=== PATIENT | female | born 1935 | race Caucasian/White ===

== ENCOUNTER 2017-01-18 15:26 | Inpatient (IN) | payer MEDICARE, OTHER ==
--- NOTE | ~2017-01-18 | DS ---
Discharge Summary [place] [id number] [facility] [place]. [address] NAME: EUSEBIO PIZANO : 34 STATUS : DIS IN PAT#: [id number] AGE: 81 ADM/REG DATE : 01/18/17 MR#: [id number] REPORT SERV DATE: 02/28/17 DICTATED BY: Denny POMPA DATE: 02/28/17 REPORT STATUS : Draft TRANSCRIBED BY: MODL DATE: 02/28/17 ADMISSION DATE: 01/18/2017 DISCHARGE DATE: 01/23/2017 SUMMARY DATE OF : 01/22/2017 DIAGNOSES AT THE TIME OF DEMISE: Acute on chronic systolic heart failure, acute hepatic failure, influenza A, sepsis syndrome, acute kidney injury, severe metabolic acidosis, hyperkalemia, and atrial fibrillation. ACTIVE CONSULTATIONS: 1. Nephrology. 2. Cardiology. PROCEDURES: None. BRIEF SUMMARY: 81-year-old female patient with multiple chronic medical problems, was admitted with sepsis syndrome with underlying influenza A with significant organ injury including acute kidney injury and hepatic failure. Despite initial consultation with Cardiology and Nephrology and despite maximum medical support, the patient continued to have a decline in her hepatic function and renal function. The patient was felt not to be a dialysis candidate due to her multiple medical problems and advanced age. Because of worsening renal failure in the setting of multiple other medical issues, decision was made by family to consider DNR. She had outside family that came in. We had a full family meeting to discuss options and they all agreed to proceeding with DNR comfort care. Her AICD was turned off, and the patient passed due to her multiple medical issues on the afternoon of 01/22/2017. The certificate was completed by myself at the time of the patient's passing. There was no autopsy requested. [facility]/MODL Denny Pompa M.D. / [id number] CC: Manjinder Corado DO
--- NOTE | ~2017-01-18 | CN ---
Consultation Report [facility] [address] [place]. [address] NAME: EUSEBIO PIZANO : 34 STATUS : ADM IN PAT#: [id number] AGE: 81 ADM/REG DATE : 01/18/17 MR#: [id number] REPORT SERV DATE: 01/19/17 DICTATED BY: FELICIA BELTRAN DATE: 01/19/17 REPORT STATUS : Draft TRANSCRIBED BY: MODL DATE: 01/19/17 CARDIOLOGY CONSULTATION DATE OF CONSULTATION: 01/19/2017 REASON FOR CONSULTATION: Congestive heart failure exacerbation associated with likely secondary influenza. HISTORY OF PRESENT ILLNESS: The patient is an 81-year-old female with chronic systolic congestive heart failure, permanent atrial fibrillation with chronic anticoagulation, diabetes and stage 4 chronic kidney disease. The patient recently hospitalized at [facility] and discharged on 01/12/2017. Echocardiogram at that time demonstrated ejection fraction of 25%. No significant valvular heart disease noted. The patient was transferred to [facility]. The patient reportedly while at [facility] developed progressive dyspnea and hypoxemia. She was transferred by [facility] and on arrival, was immediately placed on BiPAP for hypoxic respiratory failure. The patient is a very poor historian, previously followed by Dr. Fredy Wolff. She reports that she and Dr. Wolff have mutually terminated care. She has not sought ongoing cardiology followup since that time. She does state she desires to follow up with Dr. Corey Gil, my partner who is her color separation photographer. The patient is exceptionally poor historian. She is unable to clearly answer questions regarding fever, chills, urinary tract symptoms, bowel pattern etc. She does deny chest pain currently. PAST MEDICAL HISTORY: 1. Chronic systolic congestive heart failure-ejection fraction 30% by recent echocardiogram. 2. Implantable defibrillator/pacemaker with resynchronization therapy, implanted in 2008, [employer] brand device. 3. Chronic atrial fibrillation. 4. Chronic amiodarone use secondary to chronic atrial fibrillation. 5. Chronic anticoagulation secondary to atrial fibrillation. FAMILY HISTORY: Brother with sudden at age 50. Father reportedly with sudden at age 50. These records are taken from the outpatient record. SOCIAL HISTORY: The patient denies tobacco, alcohol, or illicit drug use. Records substantiate same claims. ALLERGIES: PENICILLIN WITH RASH. OUTPATIENT MEDICATIONS: Acetaminophen p.r.n.; Maalox liquid p.r.n.; amiodarone 200 mg daily; Dulcolax p.r.n.; carvedilol 3.125 mg p.o. b.i.d.; vitamin D3 1000 units p.o. daily; Voltaren gel topically twice daily p.r.n. pain; Pepcid 20 mg daily; hydrocodone/acetaminophen 5/325 mg daily q.8 hours p.r.n. pain; Plaquenil 200 mg daily; sliding scale insulin with NovoLog Consultation Report [place] [address] [place]. [address] NAME: EUSEBIO PIZANO : 34 STATUS : ADM IN PAT#: [id number] AGE: 81 ADM/REG DATE : 01/18/17 MR#: [id number] REPORT SERV DATE: 01/19/17 DICTATED BY: FELICIA BELTRAN DATE: 01/19/17 REPORT STATUS : Draft TRANSCRIBED BY: RAMON DATE: 01/19/17 insulin daily; Levemir insulin 14 units subcu at bedtime; levothyroxine 75 mcg daily; Lidocaine 5% topical patch at bedtime; Lidocaine 5% topical patch two patches topically daily applied to the knee; nitroglycerin 0.4 mg sublingual p.r.n.; Zofran 4 mg q.4 hours p.r.n. nausea vomiting; spironolactone 25 mg daily; torsemide 40 mg p.o. daily; tramadol 50 mg q.12 hours p.r.n. pain; and warfarin 5 mg daily with a target INR of 2 to 3. REVIEW OF SYSTEMS: Very difficult to obtain from the patient. However, negative for all organ systems except per the history of present illness. PHYSICAL EXAMINATION: VITALS: Respirations 100% on 4 L nasal cannula. Weight 82 kg, pulse 87, blood pressure 106/72, respirations 20 and unlabored. GENERAL: Obese elderly female, in no acute distress. Wearing nasal cannula oxygen. HEENT: Normal. NECK: Supple, no JVD or bruit, normal carotid upstroke bilaterally, no thyromegaly. LUNGS: Scattered crackles noted in all lung naranjo. CARDIOLOGY: Regular rhythm, normal S1, S2, no thrill, no murmur, rubs or gallops, normal PMI. ABDOMEN: Bowel sounds positive, soft, nontender, and nondistended. No masses or aortic bruits. No hepatosplenomegaly or hepatojugular reflux. EXTREMITIES: No edema. Normal pulses. No clubbing or cyanosis. SKIN: Warm and dry, no significant rash. NEUROLOGIC: Alert and oriented x 3. Appropriate mood. DATA: EKG: Biventricular paced rhythm. No clear P-wave identified. Interrogation of patient's device demonstrates normal right ventricular and left ventricular lead function. Right atrial sensing and capture are abnormal suggesting displacement of the lead. Due to dysfunction of the atrial lead, it has been turned off/electrically isolated by the device product support sales representative. LABORATORY DATA: Sodium 130, potassium 4.8, chloride 95, CO2 of 17, BUN 85, creatinine 3.27 from 2.7 on admission. GFR 15, glucose 288, magnesium 2.7, WBC 17.1, hemoglobin 9.8, hematocrit 30.1, platelets 292,000. Serial troponin 0.07, 0.28, and 0.43. Beta natriuretic peptide elevated at 792. IMPRESSION: 1. Chronic atrial fibrillation on amiodarone. Continue same. 2. Flipped defibrillator/biventricular pacemaker in situ-normal biventricular lead function with biventricular pacing. The atrial lead appears to be dislodged and by interrogation sensing nor pacing adequately. It has been inactivated by the device product support sales representative. 3. Chronic systolic congestive heart failure-exacerbation likely multifactorial most prominently secondary to influenza. Consultation Report [address] [address] NAME: EUSEBIO PIZANO : 34 STATUS : ADM IN [facility]#: [id number] AGE: 81 ADM/REG DATE : 01/18/17 MR#: [id number] REPORT SERV DATE: 01/19/17 DICTATED BY: FELICIA BELTRAN DATE: 01/19/17 REPORT STATUS : Draft TRANSCRIBED BY: MODL DATE: 01/19/17 4. Influenza A-per the hospitalist currently on Tamiflu. 5. Underlying urinary tract infection-currently being treated with antibiotics per hospitalist. 6. Chronic kidney disease-Nephrology involved, and they are currently managing diuretics and diuresis. We will defer the same at this time. Thank you for the opportunity to see the patient in consultation. We will continue to follow the patient with you. We have recommended continuation of her beta joy and amiodarone at this time. There are no plans for invasive management or procedures. We would recommend continuation of warfarin for stroke prophylaxis. INR is mildly supratherapeutic at 3.3. 1. Elevated liver function tests-multifactorial. Again diuresis as described above per the bathroom tiling professional. We will plan to follow the patient with you. CSL/MODL Bartolo Beltran M.D. / [id number] CC: Manjinder Corado DO
--- NOTE | ~2017-01-18 | HP ---
History And Physical [place] [id number] [facility] [place]. [address] NAME: EUSEBIO PIZANO : 34 STATUS : ADM IN [facility]#: [id number] AGE: 81 ADM/REG DATE : 01/18/17 MR#: [id number] REPORT SERV DATE: 01/18/17 DICTATED BY: ORQUIDEA OVALLE DATE: 01/18/17 REPORT STATUS : Draft TRANSCRIBED BY: MODL DATE: 01/18/17 DATE OF ADMISSION: 01/18/2017 CHIEF COMPLAINT: Shortness of breath, influenza. PRIMARY CARE DOCTOR: Unclear. HISTORY OF PRESENT ILLNESS: This is an unfortunate 81-year-old female, who suffers from obesity; systolic heart failure, chronic nature; known history of chronic atrial fibrillation, on chronic Coumadin; insulin-dependent diabetes; stage IV CKD, baseline around 2.0 to 2.5 creatinine; noted history of ESBL UTI. Hospitalization in [facility], discharged actually on 01/12/2017, at that time, found to have ESBL UTI, acute on chronic systolic heart failure exacerbation. Echo done there, EF 25%, global hypocontractility, mild MR, mild AR, and moderate TR. Had ultrasound, did not show any VTE at that time. The patient went to [facility]. Apparently, I spoke to the friend and the daughter, told me last Sunday, the patient was doing just fine. Then, the patient comes into the emergency department significantly hypoxic into the 70s, placed on BiPAP via the ER. Now, she is currently 100% on 50% FiO2. I do not have an ABG in front of me. The patient has very unclear history, not the best historian. She does nod her head. She does squeeze my hands to command. She is on BiPAP. She was taken off BiPAP earlier and apparently got very hypoxic. Though I tried to call her friend and her daughter for more history, they did not know much what had occurred except that she came from [facility], significant shortness of breath. Influenza swab was positive for influenza A. Came via EMS on CPAP. Noted chest x- ray, bilateral alveolar infiltration. White count 17.4. Thankfully, her pressure systolic arredondo is 116/64. The patient is a very poor historian given limitation of BiPAP communication and risk of worsened hypoxia if were to intermittently take off BiPAP. The patient states she was not short of breath and clearly is short of breath. As a result, she is a poor historian. I cannot assess if she has had any fevers, chills, nausea, vomiting, diarrhea, or subjective shortness of breath, but certainly has objective shortness of breath. PAST MEDICAL AND PAST SURGICAL HISTORY: The patient had recent AICD pacer. Past history of diabetic neuropathy, hypothyroidism, atrial fibrillation. Noted past surgical history of left foot, unclear surgery which is from [facility] records. ALLERGIES: PENICILLIN, UNCLEAR REACTION, APPARENTLY, SHE HAD A RASH. FAMILY HISTORY: Hypertension in at least one parent. SOCIAL HISTORY: Unclear if she has had any alcohol or drug use or tobacco use, however. HOME MEDICATIONS: See JAN. Continue what is relevant. History And Physical [address] [place]. [address] NAME: EUSEBIO PIZANO : 34 STATUS : ADM IN [facility]#: [id number] AGE: 81 ADM/REG DATE : 01/18/17 MR#: [id number] REPORT SERV DATE: 01/18/17 DICTATED BY: ORQUIDEA OVALLE DATE: 01/18/17 REPORT STATUS : Draft TRANSCRIBED BY: RAMON DATE: 01/18/17 OBJECTIVE: VITAL SIGNS: 116/64; 99.9 temp; 93 pulse, up to 110, seems to be paced, thought one time had nonsustained ventricular tachycardia, there have been no shocks here; 24 respirations; 92%, up from in the 70s per EMS, now she is on 100% FiO2 of 50 and she is 109 systolic over 77. GENERAL: Critical. HEENT: PERRLA. No scleral icterus. CARDIOVASCULAR: Tachycardic. Appears regular rhythm though. 1/6 systolic aortic murmur. RESPIRATORY: Bibasilar crackles. Decreased breath sounds otherwise. ABDOMEN: Obese. Mild tenderness to palpation, more periumbilical region. No rebound tenderness. EXTREMITIES: 1+ pitting edema. NEURO: Squeezes my hand to command. Says she does not have short of breath by nodding left to right when she clearly does have objective shortness of breath. Poor historian. PSYCH: Unable to assess given neuro status. LABORATORY DATA: White count 17.4; hemoglobin 11.4; 431,000 platelets; 4.5 potassium; 24 bicarb; 2.7 creatinine, baseline is like 2.0, 2.5; 77 BUN, 234 sugar, alkaline phos of 252; AST/ALT 524/82; BNP 803; troponin 0.07. EKG appears here to have ventricular paced, unable to fully assess ischemic ST-T segments. Chest x-ray, see above. ASSESSMENT AND PLAN: 1. Severe sepsis. 2. Healthcare-associated pneumonia with influenza A. 3. Altered mental status, acute toxic encephalopathy. 4. Chronic systolic heart failure, LVEF 25%. 5. Cholestatic transaminitis, unclear etiology. 6. Acute hypoxic respiratory failure. PLAN: We will go ahead and admit this patient to IMCU. Panculture given recent hospitalization, although she does have influenza A and she is altered, cannot fully rule out secondary bacterial infection until panculture results. We will place on vancomycin, cefepime, and Flagyl about 5% to 10% cross-reactivity with penicillin, does not appear to be an anaphylactic reaction. As a result, CT of the head, CT of the abdomen and pelvis cholestatic transaminitis, B12, folate, ammonia, altered mental status, and CT of the brain for encephalopathy. If her BNP is still elevated tomorrow and she has been resuscitated volume arredondo, we will go ahead and begin to diuresis with Bumex. In the interim, ER has started her on amiodarone. We will continue that as a drip, thought to have a nonsustained ventricular tachycardia, but than likely, was just tachycardia with V-paced rhythm. She is on home amiodarone apparently. We will also go ahead and place her on Tamiflu. Interrogate her ICD. Place her on IV metoprolol around the clock. She is not able to likely take full p.o. Brovana, budesonide, and Spiriva. Pulmonary consultation will be called with ABG. Placed on IV Synthroid as likely cannot take p.o. and Solu-Medrol for acute clinical COPD exacerbation. Last spirometry appeared to have obstructive component. As a result, she will be 3/3 GOLD criteria COPD exacerbation. See rest of my orders. All questions were answered. History And Physical [address] [place] [place] [address] NAME: HANSNAVEENEUSEBIO JUNIOR : 34 STATUS : ADM IN PAT#: [id number] AGE: 81 ADM/REG DATE : 01/18/17 MR#: [id number] REPORT SERV DATE: 01/18/17 DICTATED BY: ORQUIDEA OVALLE DATE: 01/18/17 REPORT STATUS : Draft TRANSCRIBED BY: MODL DATE: 01/18/17 Took over 60 minutes to do. We would like to mention critical care time of least 45 minutes interpreting ABG and attempting to stabilize the patient. WST/RAMON Orquidea Ovalle DO / [id number] CC: Denny Pompa M.D.
--- NOTE | ~2017-01-18 | CN ---
Consultation Report [facility] [address] [facility] [facility] [place]. [address] NAME: TIANNA SHAH : 34 STATUS : ADM IN PAT#: [id number] AGE: 81 ADM/REG DATE : 01/18/17 MR#: [id number] REPORT SERV DATE: 01/19/17 DICTATED BY: JOSH HONG DATE: 01/19/17 REPORT STATUS : Draft TRANSCRIBED BY: MODL DATE: 01/19/17 CONSULTATION REPORT DATE OF CONSULTATION: Dear Dr. Berg: Thank you for requesting my opinion regarding evaluation and management of Ms Tianna Shah's hypoxic respiratory failure. Ms. Shah is an 81-year-old female, with a significant past medical history of systolic heart failure with an ejection fraction of 25%. Mild MR, AR and TR, morbid obesity, chronic atrial fibrillation, diabetes, stage 4 kidney disease, who presents to [facility] with worsening shortness of breath. She was at [facility], and she was noted to have increasing shortness of breath requiring BiPAP support, and then transferred here to the [facility]. Her influenza A swab was positive. Her white count was 17,000 and her chest x-ray demonstrated bilateral infiltrates consistent with either pulmonary edema or pneumonia. I also attempted to obtain a history from Mrs. Shah, but she appears altered and is a poor historian. She does state that she is short of breath and feels awful. Her shortness of breath is characterized as [id number]-or-meipmo in nature, well localized to the chest, nonradiating with no significant alleviating or exacerbating factors. REVIEW OF SYSTEMS: A detailed 14-point review of systems could not be performed, due to patient's altered mental status. PAST MEDICAL HISTORY: 1. AICD. 2. Diabetic neuropathy. 3. Hypothyroidism. 4. Atrial fibrillation. 5. Heart failure with an EF of 25%. 6. Chronic kidney disease stage IV with baseline creatinine of 2 to 2.5. 7. Atrial fibrillation. 8. History of ESBL UTI. 9. Recent hospitalization at [facility] for heart failure exacerbation. PAST SURGICAL HISTORY: Left foot surgery, unclear. ALLERGIES: PENICILLIN, RASH. HOME MEDICATIONS: Reviewed and located in the paper chart. FAMILY HISTORY: Hypertension. Consultation Report [facility] [address] [facility] [place]. [address] NAME: TIANNA SHAH : 34 STATUS : ADM IN PAT#: [id number] AGE: 81 ADM/REG DATE : 01/18/17 MR#: [id number] REPORT SERV DATE: 01/19/17 DICTATED BY: JOSH HONG DATE: 01/19/17 REPORT STATUS : Draft TRANSCRIBED BY: MODL DATE: 01/19/17 SOCIAL HISTORY: Unclear. PHYSICAL EXAMINATION: VITAL SIGNS: Afebrile, T-current of 96.7, pulse of 84, respiratory rate of 23, 4 L on 100%, blood pressure 96/59, and MAP of 72. GENERAL: Respiratory distress, moderate in nature. The patient appears to have labored breathing. HEENT: Normocephalic and atraumatic. Pupils are equal, round, and reactive to light and accommodation. Posterior oropharynx is clear. NECK: No JVD. No LAD. Trachea midline. CARDIOVASCULAR: Regular rate and rhythm. S1, S2 present. LUNGS: Coarse bilateral breath sounds. End-expiratory wheezes and increased work of breathing. ABDOMEN: Protuberant, nontender, nondistended, and soft. Positive bowel sounds. EXTREMITIES: No clubbing, cyanosis, or edema. SKIN: No new rashes, lesions, or ulcers. PSYCHIATRIC: Alert and oriented x3. However, still a poor historian, not engaged with history taking. NEUROLOGIC: Moving all four extremities. Cranial nerves 2 through 12 could not be tested, due to the patient's lack of cooperation. LABORATORY DATA: White count of 17, hemoglobin of 9, platelet count of 292, procalcitonin of 3.19. Chemistries demonstrate a creatinine of 3.27, LFTs are elevated into the 1000s. Troponins positive. pH of 7.4, PaCO2 of 28, PaO2 of 323, 322 in 03/2016. UA is bland. Chest x-ray; venous congestion interstitial edema, bibasilar atelectasis, small amount of pleural fluid, stable enlargement of cardiac silhouette with AICD device in stable position. This chest x-ray has been personally reviewed by me. I agree with the above interpretation. ASSESSMENT AND PLAN: Ms. Alyssa Wynn is an unfortunate 81-year-old female, with a significant past medical history of obesity, systolic heart failure, atrial fibrillation, insulin-dependent diabetes, stage 4 chronic kidney disease with a baseline creatinine of 2 to 2.5, and Extended Spectrum Beta-Lactamases, urinary tract infection, who presents to [facility] with worsening shortness of breath, and hypoxic respiratory failure. The patient had been on BiPAP in the ER, but has still increased work of breathing. Her influenza swab was positive. The clinical and radiographic presentation is most consistent with multifactorial shortness of breath, due to the followin. Influenza and possible HCAP pneumonia, due to a recent hospitalization with bilateral infiltrates, positive procalcitonin, elevated white count of 17,000. 2. Systolic heart failure. 3. Acute kidney injury in the setting of stage 4 kidney disease. 4. Obesity. 5. Shock liver. RECOMMENDATIONS: A summary of my recommendations to optimize her pulmonary status are as follows. Consultation Report [facility] [address] [facility] [place]. [address] NAME: TIANNA SHAH : 34 STATUS : ADM IN PAT#: [id number] AGE: 81 ADM/REG DATE : 01/18/17 MR#: [id number] REPORT SERV DATE: 01/19/17 DICTATED BY: JOSH HONG DATE: 01/19/17 REPORT STATUS : Draft TRANSCRIBED BY: MODL DATE: 01/19/17 1. Brovana, Pulmicort, and DuoNeb. 2. Continue vancomycin, cefepime, Flagyl, and Tamiflu. 3. BiPAP support. 4. Precedex p.r.n. 5. DC Spiriva. 6. ABG in a.m. 7. CT scan of the chest without contrast. Thank you for allowing me to participate in Ms. Shah's care. SANDY/RAMON Josh Hong M.D. / [id number] CC: Manjinedr Corado DO
[2017-01-18 15:18] LABS: BASOPHILS 0.2 %; BASOPHILS ABSOLUTE 0.03 10/3/uL (0.0-0.16); EOSINOPHILS 0.4 %; EOSINOPHILS ABSOLUTE 0.07 10/3/uL (0.0-0.53); HEMOGLOBIN 11.4 g/dL (12.0-16.0); IMMATURE GRANULOCYTES 2.3 %; LYMPHOCYTES 5.6 %; LYMPHOCYTES ABSOLUTE 0.97 10/3/uL (0.67-4.30); MEAN CORPUS HGB CONC 32.1 g/dL (32.0-36.0); MEAN CORPUSCULAR HEMOGLOB 28.3 pg (26.0-34.0); MONOCYTES 7.6 %; MONOCYTES ABSOLUTE 1.33 10/3/uL (0.21-1.20); NEUTROPHILS 83.9 %; NEUTROPHILS ABSOLUTE 14.59 10/3/uL (2.02-8.40); PLATELET COUNT 431 10/3/uL (150-400); RBC DISTRIBUTION WIDTH 15.3 % (12.0-16.0); RED CELL COUNT 4.03 10/6/uL (4.0-5.6); WHITE BLOOD CELLS 17.4 10/3/uL (4.5-10.5)
[2017-01-18 15:20] LABS: HEMATOCRIT 35.5 % (36.0-48.0); MANUAL DIFF NO %; MEAN CORPUSCULAR VOLUME 88.1 fL (80-100)
[~2017-01-18 15:26] MED LIST: BUM1 PO; C5 PO; COD LIVE1 PO; CORDARONE PO; COREG3; DEMA20 PO; DSS PO; JANUVIA25 MG PO; LANTUSCART SC; LEVEMIR SC; LEVOTHYROXIN50 MCG PO; LEVOTHYROXIN75 MCG PO; NORCO1 TA1 PO; NOVOLOG SC; PEP20 PO; PLAQ200B PO; PROMEGA PO; SPIRO25 PO; ULTRAM50 PO; VITAMIN D31000 UNIT PO; VOLTAREN1 % TOP; Z5 PO
[2017-01-18 15:27] LABS: INTERNATIONAL NORMAL RATI 2.3 UNITS (-); PARTIAL THROMBO TIME 34.9 SEC (22.5-37.2)
[2017-01-18 15:36] LABS: A/G RATIO 0.7 (0.7-1.9); ALBUMIN 3.3 G/DL (3.5-5.0); BUN (BLOOD UREA NITROGEN) 77 MG/DL (6-23); CALCIUM, SERUM 9.1 MG/DL (8.5-10.4); CHLORIDE, SERUM 90 MMOL/L (96-112); GFR AFRICAN AMERICAN 18 ML/MIN (>=60); GFR NON AFRICAN AMERICAN 16 ML/MIN (>=60); GLOBULIN 4.5 G/DL (2.5-4.1); POTASSIUM, SERUM 4.5 MMOL/L (3.5-5.3); SGOT(AST) 524 U/L (5-40); SGPT(ALT) 282 U/L (5-65); SODIUM, SERUM 130 MMOL/L (135-148); TOTAL BILIRUBIN 0.8 MG/DL (0-1.2); TOTAL PROTEIN 7.8 G/DL (6.0-8.5)
[2017-01-18 15:41] LABS: ALKALINE PHOSPHATASE 252 U/L (45-117); CO2 (CARBON DIOXIDE) 24 MMOL/L (24-34); GLUCOSE, SERUM 234 MG/DL (60-99)
[2017-01-18 15:42] LABS: TROPONIN I 0.07 NG/ML (<0.05)
[2017-01-18 15:49] LABS: B NATRIURETIC PEPTIDE (BNP) 803.8 PG/ML (< 100.0)
[2017-01-18] MEDS ORDERED: COREG3 PO ×2 (15:56→16:33)
[2017-01-18] MEDS ORDERED: CORDARONE PO ×2 (15:56→16:17)
[2017-01-18] MEDS ORDERED: NORCO1 TA1 PO (16:09)
[2017-01-18] MEDS ORDERED: KLOR-CON 1010 MEQ PO (16:11)
[2017-01-18] MEDS ORDERED: SPIRO25 PO (16:12)
[2017-01-18] MEDS ORDERED: DEMA20 PO (16:13)
[2017-01-18] MEDS ORDERED: LIDODERM TOP ×2 (16:14→16:21)
[2017-01-18] MEDS ORDERED: FISH-EPA1000 MG PO (16:18)
[2017-01-18] MEDS ORDERED: VITAMIN D31000 UNIT PO (16:19)
[2017-01-18] MEDS ORDERED: PLAQ200B PO (16:19)
[2017-01-18] MEDS ORDERED: SYN075 PO (16:21)
[2017-01-18] MEDS ORDERED: LEVEMIR SC (16:22)
[2017-01-18 16:23] LABS: PROCALCITONIN 0.09 ng/mL (<0.5)
[2017-01-18] MEDS ORDERED: DSS PO (16:24)
[2017-01-18] MEDS ORDERED: PEP20 PO (16:25)
[2017-01-18 16:27] LABS: WBC (NOT ORDERED) (RFLEX) 0 (0-5)
[2017-01-18] MEDS ORDERED: NOVOLOG SC (16:28)
[2017-01-18] MEDS ORDERED: C5 PO (16:31)
[2017-01-18 16:34] LABS: ASCORBIC ACID (UR NOT ORDER) NEG (NEG); BILIRUBIN, URINE NEGATIVE (NEG); ER URINALYSIS TAT 0 Hrs 09 Mins; KETONE, URINE NEGATIVE (NEG); LEUKOCYTE ESTERASE(NOT OR NEG (NEG); NITRITE (URINE) NEG (NEG)
[2017-01-18] MEDS ORDERED: VOLTAREN1 % TOP (16:34)
[2017-01-18] MEDS ORDERED: SENTAB PO (16:35)
[2017-01-18] MEDS ORDERED: ULTRAM50 PO (16:37)
[2017-01-18] MEDS ORDERED: T PO (16:39)
[2017-01-18] MEDS ORDERED: MAALOX PO (16:41)
[2017-01-18 16:42] LABS: INFLUENZA A SCREEN POSITIVE (NEGATIVE); INFLUENZA B SCREEN NEGATIVE (NEGATIVE)
[2017-01-18] MEDS ORDERED: BISR PR (16:42)
[2017-01-18] MEDS ORDERED: MOMUD PO (16:43)
[2017-01-18] MEDS ORDERED: NITROSTAT0.4 MG SL (16:46)
[2017-01-18] MEDS ORDERED: ZOFRAN4 PO (16:47)
[2017-01-18 21:37] LABS: GLYCOHEMOGLOBIN (HbA1c) 7.7 % (4.7-6.1)
[2017-01-18 21:45] LABS: PROCALCITONIN 3.19 ng/mL (<0.5)
[2017-01-18 22:09] LABS: A/G RATIO 0.8 (0.7-1.9); ALBUMIN 2.9 G/DL (3.5-5.0); BUN (BLOOD UREA NITROGEN) 80 MG/DL (6-23); CALCIUM, SERUM 8.4 MG/DL (8.5-10.4); CHLORIDE, SERUM 93 MMOL/L (96-112); CO2 (CARBON DIOXIDE) 22 MMOL/L (24-34); CREATININE 2.91 MG/DL (0.55-1.02); GFR AFRICAN AMERICAN 17 ML/MIN (>=60); GFR NON AFRICAN AMERICAN 14 ML/MIN (>=60); GLOBULIN 3.7 G/DL (2.5-4.1); POTASSIUM, SERUM 5.3 MMOL/L (3.5-5.3); SGOT(AST) 2114 U/L (5-40); SGPT(ALT) 1149 U/L (5-65); SODIUM, SERUM 128 MMOL/L (135-148); TOTAL PROTEIN 6.6 G/DL (6.0-8.5)
[2017-01-18 22:10] LABS: ALKALINE PHOSPHATASE 361 U/L (45-117); GLUCOSE, SERUM 281 MG/DL (60-99); PHOSPHORUS, SERUM 4.9 MG/DL (2.5-4.5); TOTAL BILIRUBIN 1.3 MG/DL (0-1.2)
[2017-01-18 22:14] LABS: TROPONIN I 0.28 NG/ML (<0.05)
[2017-01-18 22:39] LABS: HEMATOCRIT 32.6 % (36.0-48.0); HEMOGLOBIN 10.6 g/dL (12.0-16.0); MEAN CORPUS HGB CONC 32.5 g/dL (32.0-36.0); MEAN CORPUSCULAR HEMOGLOB 27.7 pg (26.0-34.0); PLATELET COUNT 307 10/3/uL (150-400); RBC DISTRIBUTION WIDTH 15.4 % (12.0-16.0); RED CELL COUNT 3.82 10/6/uL (4.0-5.6); WHITE BLOOD CELLS 20.8 10/3/uL (4.5-10.5)
[2017-01-18 22:41] LABS: MANUAL DIFF YES %; MEAN CORPUSCULAR VOLUME 85.3 fL (80-100)
[2017-01-18 22:57] LABS: BAND NEUTROPHILS 2 %; IMMATURE GRANS ABSOLUTE (CALC) 0.21 10/3/uL (0.0-0.11); METAMYELOCYTES 1 %; MONOCYTES 1 %; MONOCYTES ABSOLUTE (CALC) 0.21 10/3/uL (0.21-1.20); NEUTROPHILS ABSOLUTE (CALC) 20.38 10/3/uL (2.02-8.40); SEGMENTED NEUTROPHIL (0) 96 %; TOTAL NUCLEATED CELLS 100
[2017-01-18 22:58] LABS: PLATELET ESTIMATE ADQ (ADEQUATE); RBC MORPHOLOGY NORM (NORMAL)
[2017-01-18 22:59] LABS: FOLATE > 100.0 NG/ML (>5.2)
[2017-01-19 00:06] LABS: BE (BASE EXCESS) -6.5 MEQ/L (0 +/- 2.5); BIPAP 16/5 cm.H2O; CARBOXYHEMOGLOBIN 0.6 % (0-3); HEMOBLOGIN CONTENT 11.5 G/DL (12-16); INSTRUMENT SERIAL # 8087; METHEMOGLOBIN 0.2 % (0-3); O2 CONTENT 16.8 VOL% (18-24); PCO2 (CO2 TENSION) 28 MMHG (35-45); PO2 (O2 TENSION) 322 MMHG (79-93); SAMPLE Arterial
[2017-01-19 04:43] LABS: BASOPHILS 0.1 %; BASOPHILS ABSOLUTE 0.01 10/3/uL (0.0-0.16); EOSINOPHILS 0 %; HEMATOCRIT 30.1 % (36.0-48.0); HEMOGLOBIN 9.8 g/dL (12.0-16.0); IMMATURE GRANULOCYTES 1.3 %; IMMATURE GRANULOCYTES ABSOLUTE 0.23 10/3/uL (0.0-0.11); LYMPHOCYTES 3.9 %; LYMPHOCYTES ABSOLUTE 0.66 10/3/uL (0.67-4.30); MEAN CORPUS HGB CONC 32.6 g/dL (32.0-36.0); MEAN CORPUSCULAR HEMOGLOB 27.3 pg (26.0-34.0); MEAN CORPUSCULAR VOLUME 83.8 fL (80-100); MEAN PLATELET VOLUME 9.5 fL (9.2-13.0); MONOCYTES 2.9 %; NEUTROPHILS 91.8 %; PLATELET COUNT 292 10/3/uL (150-400); RBC DISTRIBUTION WIDTH 15.3 % (12.0-16.0); RED CELL COUNT 3.59 10/6/uL (4.0-5.6); WHITE BLOOD CELLS 17.1 10/3/uL (4.5-10.5)
[2017-01-19 04:54] LABS: INTERNATIONAL NORMAL RATI 3.3 UNITS (-); MANUAL DIFF NO %
[2017-01-19 04:55] LABS: CALCIUM, SERUM 8.3 MG/DL (8.5-10.4); CHLORIDE, SERUM 95 MMOL/L (96-112); CO2 (CARBON DIOXIDE) 19 MMOL/L (24-34); CREATININE 3.27 MG/DL (0.55-1.02); GFR AFRICAN AMERICAN 15 ML/MIN (>=60); GFR NON AFRICAN AMERICAN 13 ML/MIN (>=60); GLUCOSE, SERUM 288 MG/DL (60-99); PHOSPHORUS, SERUM 5.3 MG/DL (2.5-4.5); POTASSIUM, SERUM 4.8 MMOL/L (3.5-5.3); SODIUM, SERUM 130 MMOL/L (135-148)
[2017-01-19 04:58] LABS: BUN (BLOOD UREA NITROGEN) 85 MG/DL (6-23)
[2017-01-19 05:06] LABS: PROTIME (NOT ORD) 33.5 SEC (12.0-14.5)
[2017-01-20 04:48] LABS: ALLENS TEST Pos; BE (BASE EXCESS) -4.2 MEQ/L (0 +/- 2.5); CARBOXYHEMOGLOBIN 0.1 % (0-3); HCO3 (ACTUAL BICARBONATE) 19.9 MEQ/L (23-27); HEMOBLOGIN CONTENT 10.2 G/DL (12-16); INSTRUMENT SERIAL # 8083; METHEMOGLOBIN 0.1 % (0-3); O2 CONTENT 14.4 VOL% (18-24); PCO2 (CO2 TENSION) 33 MMHG (35-45); PO2 (O2 TENSION) 137 MMHG (79-93); SAMPLE Arterial
[2017-01-20 05:11] LABS: BASOPHILS 0 %; BASOPHILS ABSOLUTE 0.01 10/3/uL (0.0-0.16); EOSINOPHILS 0 %; HEMATOCRIT 28.8 % (36.0-48.0); HEMOGLOBIN 9.5 g/dL (12.0-16.0); IMMATURE GRANULOCYTES 1.9 %; LYMPHOCYTES 1.6 %; LYMPHOCYTES ABSOLUTE 0.34 10/3/uL (0.67-4.30); MEAN CORPUSCULAR HEMOGLOB 28.1 pg (26.0-34.0); MEAN CORPUSCULAR VOLUME 85.2 fL (80-100); MEAN PLATELET VOLUME 10.4 fL (9.2-13.0); NEUTROPHILS 88.5 %; NEUTROPHILS ABSOLUTE 18.82 10/3/uL (2.02-8.40); PLATELET COUNT 255 10/3/uL (150-400); RBC DISTRIBUTION WIDTH 15.4 % (12.0-16.0); RED CELL COUNT 3.38 10/6/uL (4.0-5.6); WHITE BLOOD CELLS 21.3 10/3/uL (4.5-10.5)
[2017-01-20 05:12] LABS: MANUAL DIFF NO %
[2017-01-20 05:18] LABS: INTERNATIONAL NORMAL RATI 5.5 UNITS (-); PROTIME (NOT ORD) 49.9 SEC (12.0-14.5)
[2017-01-20 05:20] LABS: CALCIUM, SERUM 8.1 MG/DL (8.5-10.4); CHLORIDE, SERUM 92 MMOL/L (96-112); CO2 (CARBON DIOXIDE) 21 MMOL/L (24-34); DIRECT BILIRUBIN 0.6 MG/DL (0.0-0.4); INDIRECT BILIRUBIN(NOT ORDER) 0.8 MG/DL (0.1-0.9); PHOSPHORUS, SERUM 6.1 MG/DL (2.5-4.5); SGOT(AST) 5535 U/L (5-40); SGPT(ALT) 3278 U/L (5-65); SODIUM, SERUM 128 MMOL/L (135-148); TOTAL BILIRUBIN 1.4 MG/DL (0-1.2); TOTAL PROTEIN 6.9 G/DL (6.0-8.5)
[2017-01-20 05:38] LABS: A/G RATIO 1.4 (0.7-1.9); ALKALINE PHOSPHATASE 270 U/L (45-117); BUN (BLOOD UREA NITROGEN) 106 MG/DL (6-23); GFR AFRICAN AMERICAN 11 ML/MIN (>=60); GFR NON AFRICAN AMERICAN 9 ML/MIN (>=60); GLOBULIN 2.9 G/DL (2.5-4.1); GLUCOSE, SERUM 202 MG/DL (60-99)
[2017-01-20 15:09] LABS: TROPONIN I 0.39 NG/ML (<0.05)
[2017-01-21 04:42] LABS: HEMATOCRIT 30.5 % (36.0-48.0); HEMOGLOBIN 9.9 g/dL (12.0-16.0); MEAN CORPUS HGB CONC 32.5 g/dL (32.0-36.0); MEAN CORPUSCULAR HEMOGLOB 27.4 pg (26.0-34.0); MEAN CORPUSCULAR VOLUME 84.5 fL (80-100); MEAN PLATELET VOLUME 11.2 fL (9.2-13.0); PLATELET COUNT 233 10/3/uL (150-400); RBC DISTRIBUTION WIDTH 15.8 % (12.0-16.0); RED CELL COUNT 3.61 10/6/uL (4.0-5.6)
[2017-01-21 04:46] LABS: WHITE BLOOD CELLS 30.9 10/3/uL (4.5-10.5)
[2017-01-21 04:47] LABS: MANUAL DIFF YES %
[2017-01-21 05:00] LABS: ALBUMIN 4.1 G/DL (3.5-5.0); ALKALINE PHOSPHATASE 271 U/L (45-117); BUN (BLOOD UREA NITROGEN) 124 MG/DL (6-23); CALCIUM, SERUM 7.9 MG/DL (8.5-10.4); CHLORIDE, SERUM 93 MMOL/L (96-112); CO2 (CARBON DIOXIDE) 19 MMOL/L (24-34); CREATININE 4.89 MG/DL (0.55-1.02); DIRECT BILIRUBIN 0.8 MG/DL (0.0-0.4); GFR AFRICAN AMERICAN 9 ML/MIN (>=60); GFR NON AFRICAN AMERICAN 8 ML/MIN (>=60); GLUCOSE, SERUM 144 MG/DL (60-99); INDIRECT BILIRUBIN(NOT ORDER) 0.8 MG/DL (0.1-0.9); POTASSIUM, SERUM 5.6 MMOL/L (3.5-5.3); SGOT(AST) 5437 U/L (5-40); SGPT(ALT) 3939 U/L (5-65); SODIUM, SERUM 132 MMOL/L (135-148); TOTAL BILIRUBIN 1.6 MG/DL (0-1.2); TOTAL PROTEIN 7.1 G/DL (6.0-8.5)
[2017-01-21 05:01] LABS: INTERNATIONAL NORMAL RATI 8.8 UNITS (-); PROTIME (NOT ORD) 71.3 SEC (12.0-14.5)
[2017-01-21 05:50] LABS: BAND NEUTROPHILS 6 %; EOSINOPHILS 2 %; EOSINOPHILS ABSOLUTE (CALC) 0.62 10/3/uL (0.0-0.53); IMMATURE GRANS ABSOLUTE (CALC) 0.93 10/3/uL (0.0-0.11); LYMPHOCYTES 8 %; LYMPHOCYTES ABSOLUTE (CALC) 2.47 10/3/uL (0.67-4.30); METAMYELOCYTES 2 %; MONOCYTES 6 %; MONOCYTES ABSOLUTE (CALC) 1.85 10/3/uL (0.21-1.20); MYELOCYTES 1 %; NEUTROPHILS ABSOLUTE (CALC) 25.03 10/3/uL (2.02-8.40); PLATELET ESTIMATE ADQ (ADEQUATE); POLYCHROMASIA 1+ (2-5/OIF) (0-1/OIF); SEGMENTED NEUTROPHIL (0) 75 %; TOTAL NUCLEATED CELLS 100; TOXIC GRANULATION SLT; VACUOLATED NEUTROPHILES OCC
[2017-01-21 05:51] LABS: HELMET CELLS OCC (0-2/OIF); MICROCYTES 1+ (5-10/OIF) (0-5/OIF)
[2017-01-21 06:37] LABS: PROCALCITONIN 5.55 ng/mL (<0.5)
[2017-01-21 14:24] LABS: PROTIME (NOT ORD) 73.6 SEC (12.0-14.5)
[2017-01-21 14:26] LABS: INTERNATIONAL NORMAL RATI 9.1 UNITS (-)
[2017-01-22 06:15] LABS: A/G RATIO 1.2 (0.7-1.9); ALBUMIN 3.7 G/DL (3.5-5.0); ALKALINE PHOSPHATASE 271 U/L (45-117); CHLORIDE, SERUM 89 MMOL/L (96-112); PHOSPHORUS, SERUM 8.6 MG/DL (2.5-4.5); SODIUM, SERUM 131 MMOL/L (135-148); TOTAL PROTEIN 6.7 G/DL (6.0-8.5); VANCOMYCIN TROUGH 17.9 MCG/ML (10.0-20.0)
[2017-01-22 06:17] LABS: BUN (BLOOD UREA NITROGEN) 134 MG/DL (6-23); CALCIUM, SERUM 6.9 MG/DL (8.5-10.4); CO2 (CARBON DIOXIDE) 13 MMOL/L (24-34); CREATININE 5.92 MG/DL (0.55-1.02); GFR AFRICAN AMERICAN 7 ML/MIN (>=60); GFR NON AFRICAN AMERICAN 6 ML/MIN (>=60); GLUCOSE, SERUM 99 MG/DL (60-99); POTASSIUM, SERUM 6.1 MMOL/L (3.5-5.3)
[2017-01-22 06:18] LABS: TOTAL BILIRUBIN 2.8 MG/DL (0-1.2)
[2017-01-22 06:38] LABS: SGOT(AST) 4515 U/L (5-40); SGPT(ALT) 4173 U/L (5-65)
[2017-01-22 07:29] LABS: HEMATOCRIT 31.6 % (36.0-48.0); HEMOGLOBIN 9.8 g/dL (12.0-16.0); MEAN CORPUSCULAR HEMOGLOB 28.7 pg (26.0-34.0); PLATELET COUNT 173 10/3/uL (150-400); RED CELL COUNT 3.41 10/6/uL (4.0-5.6)
[2017-01-22 07:36] LABS: MANUAL DIFF YES %; MEAN CORPUSCULAR VOLUME 92.7 fL (80-100); RBC DISTRIBUTION WIDTH 26.3 % (12.0-16.0); WHITE BLOOD CELLS 34.6 10/3/uL (4.5-10.5)
[2017-01-22 07:41] LABS: ALLENS TEST Pos; BE (BASE EXCESS) -4.2 MEQ/L (0 +/- 2.5); CARBOXYHEMOGLOBIN 0.1 % (0-3); HCO3 (ACTUAL BICARBONATE) 19.9 MEQ/L (23-27); HEMOBLOGIN CONTENT 10.2 G/DL (12-16); INSTRUMENT SERIAL # 8083; METHEMOGLOBIN 0.1 % (0-3); O2 CONTENT 14.4 VOL% (18-24); PCO2 (CO2 TENSION) 33 MMHG (35-45); PO2 (O2 TENSION) 137 MMHG (79-93); SAMPLE Arterial
[2017-01-22 08:18] LABS: BAND NEUTROPHILS 15 %; IMMATURE GRANS ABSOLUTE (CALC) 0.69 10/3/uL (0.0-0.11); LYMPHOCYTES 5 %; LYMPHOCYTES ABSOLUTE (CALC) 1.73 10/3/uL (0.67-4.30); MACROCYTES 1+ (5-10/OIF) (0-5/OIF); METAMYELOCYTES 2 %; MONOCYTES 6 %; MONOCYTES ABSOLUTE (CALC) 2.08 10/3/uL (0.21-1.20); PLATELET ESTIMATE SLT DEC (ADEQUATE); POLYCHROMASIA 1+ (2-5/OIF) (0-1/OIF); SEGMENTED NEUTROPHIL (0) 72 %; TOTAL NUCLEATED CELLS 100
[2017-01-22 08:19] LABS: MICROCYTES 1+ (5-10/OIF) (0-5/OIF)
[2017-01-22 09:17] LABS: INTERNATIONAL NORMAL RATI 10.4 UNITS (-); PROTIME (NOT ORD) 81.3 SEC (12.0-14.5)
[2017-01-22 10:11] LABS: HEPATITIS B SURFACE ANTIGEN NON-REACTIVE (NON-REACT)
[2017-01-22 10:39] LABS: HEPATITIS B CORE AB IGM NON-REACTIVE (NON-REAC); HEPATITIS C ANTIBODY NON-REACTIVE (NON-REACT)
[2017-01-22 10:41] LABS: HEP A ANTIBODY IGM NON-REACTIVE (NON-REACT)
[2017-01-22 14:44] LABS: CALCIUM, SERUM 7.1 MG/DL (8.5-10.4); CHLORIDE, SERUM 90 MMOL/L (96-112); SODIUM, SERUM 133 MMOL/L (135-148)
[2017-01-22 14:45] LABS: CO2 (CARBON DIOXIDE) 17 MMOL/L (24-34); CREATININE 6.45 MG/DL (0.55-1.02); GFR AFRICAN AMERICAN 6 ML/MIN (>=60); GFR NON AFRICAN AMERICAN 6 ML/MIN (>=60); GLUCOSE, SERUM 167 MG/DL (60-99); POTASSIUM, SERUM 6.2 MMOL/L (3.5-5.3)
[2017-01-22 14:52] LABS: BUN (BLOOD UREA NITROGEN) 155 MG/DL (6-23)
== END 2017-01-22 22:30 | disposition expired | DRG 871 ==
LOC: ER 15:26 → IMCU 17:52
PROVIDERS: Emergency Medicine; Hospitalist; Internal Medicine
DX: A41.9 Sepsis, unspecified organism (principal); J96.01 Acute respiratory failure with hypoxia; K72.00 Acute and subacute hepatic failure without coma; I50.23 Acute on chronic systolic (congestive) heart failure; G92 Toxic encephalopathy; N18.4 Chronic kidney disease, stage 4 (severe); I48.2 Chronic atrial fibrillation; J10.01 Influenza due to other identified influenza virus with the same other identified influenza virus pneumonia; N39.0 Urinary tract infection, site not specified; T82.128A Displacement of other cardiac electronic device, initial encounter; E87.2 Acidosis; R65.20 Severe sepsis without septic shock; Y95 Nosocomial condition; R74.0 Nonspecific elevation of levels of transaminase and lactic acid dehydrogenase [LDH]; E66.01 Morbid (severe) obesity due to excess calories; Z79.01 Long term (current) use of anticoagulants
CPT/HCPCS: 36600; 70450; 71010; 71250; 74176; 76700; 80048; 80053; 80069; 80074; 80076; 80202; 81001; 82140; 82607; 82746; 82805; 82962; 83036; 83605; 83735; 83880; 84100; 84132; 84145; 84443; 84484; 85025; 85610; 85730; 87040; 87804; 93005; 93288; 94640; 94660; 96374; 96375; 99285; A9270-GY; J0282; J0692; J1170; J2405; J2930; J3370; J3430; P9047